=== PATIENT | male | born 1960 | race Two or more races ===

== ENCOUNTER 2019-02-02 20:56 | Emergency (ER) | payer OTHER ==
--- NOTE | 2019-02-02 21:48 | ER Document Report ---
ED Medical Screen (RME) - General Chief Complaint: Shortness Of Breath Stated Complaint: SHORTNESS OF BREATH Time Seen by Provider: 02/02/19 21:43 Mode of Arrival: Medic Information source: Patient Notes: 58-year-old male presented to ED for complaint of shortness of breath since 9 PM tonight. He states he has a history of blood cholesterol heart murmur diabetes and dermatitis. He has had a goiter removed. He states he smokes 1/2 pack a day drinks weekly and used cocaine last on . He states he works in [employer] and and lives with his family. Lungs are clear to auscultation. I have greeted and performed a rapid initial assessment of this patient. A comprehensive ED assessment and evaluation of the patient, analysis of test results and completion of medical decision making process will be conducted by an additional ED providers. Physical Exam - Vital signs Vitals: Temp Pulse Resp BP Pulse Ox 97.8 F 75 18 145/70 H 100 02/02/19 21:13 02/02/19 21:13 02/02/19 21:13 02/02/19 21:13 02/02/19 21:13 Course - Vital Signs Vital signs: Temp Pulse Resp BP Pulse Ox 97.8 F 75 18 145/70 H 100 02/02/19 21:13 02/02/19 21:13 02/02/19 21:13 02/02/19 21:13 02/02/19 21:13
--- NOTE | 2019-02-02 22:42 | EKG REPORT ---
SEVERITY:- DEFECTIVE ECG - INCOMPLETE ANALYSIS DUE TO MISSING DATA IN PRECORDIAL LEAD(S) SINUS RHYTHM ABNRM R PROG, CONSIDER ASMI OR LEAD PLACEMENT : Confirmed by: Dora Ashley MD 02-Feb-2019 22:41:33
--- NOTE | 2019-02-02 22:53 | RADIOLOGY REPORT (SQ) ---
EXAM DESCRIPTION: XR CHEST 2 VIEWS COMPLETED DATE/TME: 02/02/2019 21:48 CLINICAL HISTORY: 58 years, Male, short of breath COMPARISON: 12/20/2017 chest NUMBER OF VIEWS: 2 TECHNIQUE: 2 view chest LIMITATIONS: None. FINDINGS: Heart size is normal. Lungs are clear. No pneumothorax IMPRESSION: Negative chest copyright 2010 [employer]- All Rights Reserved
[2019-02-02 22:56] LABS: ABSOLUTE BASOPHILS # (AUTO) 0.1 10^3/uL (0.0-0.2); ABSOLUTE EOSINOPHILS # (AUTO) 0.7 10^3/uL (0.0-0.6); ABSOLUTE LYMPHOCYTES (AUTO) 2.7 10^3/uL (0.5-4.7); ABSOLUTE MONOCYTES (AUTO) 0.6 10^3/uL (0.1-1.4); ABSOLUTE NEUT (AUTO) 3.7 10^3/uL (1.7-8.2); APPEARANCE,URINE CLEAR; BASOPHILS % (AUTO) 0.9 % (0-2); BILIRUBIN,URINE NEGATIVE (NEGATIVE); COLOR,URINE YELLOW; EOSINOPHILS % (AUTO) 8.9 % (0-6); GLUCOSE, URINE >=500 mg/dL (NEGATIVE); HEMATOCRIT 45.8 % (37.9-51.0); KETONES,URINE NEGATIVE (NEGATIVE); LEUKOCYTE ESTERASE,URINE NEGATIVE (NEGATIVE); LYMPHOCYTES % (AUTO) 35.3 % (13-45); MEAN CORPUSCULAR HEMOGLOBIN 25.9 pg (27.0-33.4); MEAN CORPUSCULAR HGB CONC 32.6 g/dL (32.0-36.0); MEAN CORPUSCULAR VOLUME 79 fl (80-97); MONOCYTES % (AUTO) 7.4 % (3-13); NITRITE,URINE NEGATIVE (NEGATIVE); PLATELET COUNT 234 10^3/uL (150-450); PROTEIN,URINE NEGATIVE (NEGATIVE); RED BLOOD COUNT 5.78 10^6/uL (4.35-5.55); RED CELL DISTRIBUTION WIDTH 16.9 % (11.5-14.0); SEGMENTED NEUTROPHILS % (AUTO) 47.5 % (42-78); TOTAL CELLS COUNTED % (AUTO) 100 %; URINE SPECIFIC GRAVITY 1.037; UROBILINOGEN,URINE NEGATIVE mg/dL (<2.0); WHITE BLOOD COUNT 7.7 10^3/uL (4.0-10.5)
[2019-02-02 22:58] LABS: INTERNATIONAL RATION (INR) 0.98
[2019-02-02 22:59] LABS: PARTIAL THROMBOPLASTIN TIME 33.5 SEC (23.5-35.8)
[2019-02-02 23:07] LABS: ALBUMIN 4.2 g/dL (3.5-5.0); ALKALINE PHOSPHATASE 125 U/L (38-126); ANION GAP 8 (5-19); ASPARTATE AMINO TRANSFERASE 19 U/L (17-59); BILIRUBIN,DIRECT 0.1 mg/dL (0.0-0.4); BILIRUBIN,TOTAL 0.3 mg/dL (0.2-1.3); BLOOD UREA NITROGEN 7 mg/dL (7-20); CALCIUM 9.8 mg/dL (8.4-10.2); CARBON DIOXIDE 29 mmol/L (22-30); CHLORIDE 102 mmol/L (98-107); CREATINE KINASE 87 U/L (55-170); GLUCOSE 135 mg/dL (75-110); POTASSIUM 4.3 mmol/L (3.6-5.0); TOTAL PROTEIN 8.1 g/dL (6.3-8.2)
[2019-02-02 23:22] LABS: URINE AMPHETAMINES SCREEN NEGATIVE; URINE BARBITURATES SCREEN NEGATIVE; URINE BENZODIAZEPINES SCREEN NEGATIVE; URINE COCAINE SCREEN UNCONFIRMED POSITIVE; URINE MARIJUANA (THC) SCREEN NEGATIVE; URINE METHADONE SCREEN NEGATIVE; URINE PHENCYCLIDINE SCREEN NEGATIVE
[2019-02-02 23:37] LABS: CREATINE KINASE MB 0.27 ng/mL (<4.55); NT PRO BNP 24 pg/mL (5-900); TROPONIN I < 0.012 ng/mL
--- NOTE | 2019-02-03 00:33 | ER Document Report ---
ED General - General Chief Complaint: Shortness Of Breath Stated Complaint: SHORTNESS OF BREATH Time Seen by Provider: 02/02/19 21:43 Mode of Arrival: Medic TRAVEL OUTSIDE OF THE [place] IN LAST 30 DAYS: No - HPI Notes: This is a 58-year-old gentleman who presents today with a complaint of a brief episode of shortness of breath associated with cough. Patient states that he is [facility] the rehab center when he started having a coughing fit and had some trouble breathing. He states that he thinks it is because of his murmur. He feels fine now. He denies any chest pain now at any point. He denies any fever or chills. Has no complaints at this time. States he feels fine. - Related Data Allergies/Adverse Reactions: No Known Allergies Allergy (Verified 02/02/19 21:48) Past Medical History - General Information source: Patient - Social History Smoking Status: Current Every Day Smoker Chew tobacco use (# tins/day): No Frequency of alcohol use: Social Drug Abuse: Cocaine Family History: Hypertension Patient has suicidal ideation: No Patient has homicidal ideation: No Review of Systems - Review of Systems Cardiovascular: denies: Chest pain, Palpitations Respiratory: Cough, Short of breath - Symptoms resolved.. denies: Wheezing Gastrointestinal: denies: Abdominal pain -: Yes All other systems reviewed and negative Physical Exam - Vital signs Vitals: Temp Pulse Resp BP Pulse Ox 97.8 F 75 18 145/70 H 100 02/02/19 21:13 02/02/19 21:13 02/02/19 21:13 02/02/19 21:13 02/02/19 21:13 - General General appearance: Appears well, Alert - Respiratory Respiratory status: No respiratory distress Chest status: Nontender Breath sounds: Normal Chest palpation: Normal - Cardiovascular Rhythm: Regular Heart sounds: S1 appreciated Murmur: No - Abdominal Inspection: Normal Distension: No distension Bowel sounds: Normal Tenderness: Nontender Organomegaly: No organomegaly - Neurological Neuro grossly intact: Yes Cognition: Normal Orientation: AAOx4 [place] Coma Scale Eye Opening: Spontaneous [place] Coma Scale Verbal: Oriented [place] Coma Scale Motor: Obeys Commands [place] Coma Scale Total: 15 Speech: Normal Motor strength normal: LUE, RUE, LLE, RLE Sensory: Normal - Psychological Associated symptoms: Normal affect, Normal mood Course - Re-evaluation Re-evalutation: 02/03/19 00:31 Differential diagnosis includes anxiety versus URI versus pneumonia versus bronchitis. There is no clinical suspicion for acute coronary syndrome, CHF or PE. EKG shows normal sinus rhythm at 69 bpm. Normal axis. Normal intervals. No acute injury pattern. 02/03/19 01:18 patient is doing well. He has no complaints. He feels fine. He is stable for discharge. Labs and imaging reviewed and discussed. - Vital Signs Vital signs: Temp Pulse Resp BP Pulse Ox 97.8 F 75 18 145/70 H 100 02/02/19 21:13 02/02/19 21:13 02/02/19 21:13 02/02/19 21:13 02/02/19 21:13 - Laboratory Result Diagrams: 02/02/19 22:25 02/02/19 22:25 Laboratory results interpreted by me: 02/02/19 02/02/19 02/02/19 22:25 22:25 22:25 RBC 5.78 H MCV 79 L MCH 25.9 L RDW 16.9 H Eos % (Auto) 8.9 H Absolute Eos (auto) 0.7 H Glucose 135 H Urine Glucose (UA) >=500 H Discharge - Discharge Clinical Impression: URI (upper respiratory infection) Qualifiers: URI type: unspecified URI Qualified Code(s): J06.9 - Acute upper respiratory infection, unspecified Dyspnea Qualifiers: Dyspnea type: unspecified Qualified Code(s): R06.00 - Dyspnea, unspecified Condition: Good Disposition: HOME, SELF-CARE Instructions: Upper Respiratory Illness ([facility]), Dyspnea, Nonspecific ([facility]) Referrals: [facility] [NO LOCAL MD] - Follow up as needed
[2019-02-03 01:41] VITALS: BP 145/80
--- NOTE | 2019-02-03 13:18 | EKG REPORT ---
SEVERITY:- ABNORMAL ECG - SINUS RHYTHM POOR R WAVE PROGRESSION ANTERIOR PRECORDIAL LEADS : Confirmed by: Stevie Blackburn MD 03-Feb-2019 13:17:55
== END 2019-02-03 01:47 | disposition home or self-care (01) ==
LOC: ER 20:56
DX: J06.9 Acute upper respiratory infection, unspecified (principal); R06.00 Dyspnea, unspecified; F17.200 Nicotine dependence, unspecified, uncomplicated
CPT/HCPCS: 36415; 71046; 80053; 80307; 81001; 82550; 82553; 83735; 83880; 84484; 85025; 85610; 85730; 93005; 93010; 99285